=== PATIENT | male | born 1995 | race Caucasian/White ===

== ENCOUNTER → 2019-08-22 | Outpatient (CLI) | payer OTHER, BC ==
[2019-08-22 10:19] LABS: ABSOLUTE EOSINOPHILS # (AUTO) 0.2 10^3/uL (0.0-0.6); ABSOLUTE LYMPHOCYTES (AUTO) 1.6 10^3/uL (0.5-4.7); ABSOLUTE MONOCYTES (AUTO) 0.4 10^3/uL (0.1-1.4); ABSOLUTE NEUT (AUTO) 3.2 10^3/uL (1.7-8.2); BASOPHILS % (AUTO) 0.2 % (0-2); EOSINOPHILS % (AUTO) 2.9 % (0-6); HEMATOCRIT 44.7 % (37.9-51.0); HEMOGLOBIN 15.3 g/dL (13.5-17.0); LYMPHOCYTES % (AUTO) 30.1 % (13-45); MEAN CORPUSCULAR HEMOGLOBIN 28.4 pg (27.0-33.4); MEAN CORPUSCULAR HGB CONC 34.2 g/dL (32.0-36.0); MEAN CORPUSCULAR VOLUME 83 fl (80-97); MONOCYTES % (AUTO) 7.4 % (3-13); PLATELET COUNT 226 10^3/uL (150-450); RED BLOOD COUNT 5.39 10^6/uL (4.35-5.55); RED CELL DISTRIBUTION WIDTH 14.1 % (11.5-14.0); SEGMENTED NEUTROPHILS % (AUTO) 59.4 % (42-78); TOTAL CELLS COUNTED % (AUTO) 100 %; WHITE BLOOD COUNT 5.3 10^3/uL (4.0-10.5)
[2019-08-22 10:43] LABS: ALBUMIN 4.9 g/dL (3.5-5.0); ALKALINE PHOSPHATASE 70 U/L (38-126); ANION GAP 10 (5-19); ASPARTATE AMINO TRANSFERASE 23 U/L (17-59); BILIRUBIN,DIRECT 0.1 mg/dL (0.0-0.4); BILIRUBIN,TOTAL 0.4 mg/dL (0.2-1.3); BLOOD UREA NITROGEN 14 mg/dL (7-20); CALCIUM 9.6 mg/dL (8.4-10.2); CARBON DIOXIDE 28 mmol/L (22-30); CHLORIDE 102 mmol/L (98-107); GLUCOSE 87 mg/dL (75-110); POTASSIUM 4.8 mmol/L (3.6-5.0); TRIGLYCERIDES 184 mg/dL (<150)
[2019-08-22 10:54] LABS: DIRECT LDL 136 mg/dL (<100)
[2019-08-22 10:55] LABS: VLDL CHOLESTEROL 36.8 mg/dL (10-31)
== END ==
LOC: OD 09:27
PROVIDERS: ATTEND Internal Medicine
DX: R53.83 Other fatigue (principal); K21.9 Gastro-esophageal reflux disease without esophagitis; R73.9 Hyperglycemia, unspecified; G47.33 Obstructive sleep apnea (adult) (pediatric); E78.5 Hyperlipidemia, unspecified
CPT/HCPCS: 36415; 80053; 80061; 83036; 84443; 85025

== ENCOUNTER 2019-11-10 09:15 | Day surgery (SDC) | payer BC, OTHER ==
[~2019-11-10 09:15] MED LIST: CLINDAMYCIN 900 MG/D5W RTU 900 MG/50 ML RTUPB IV PRN; DEXAMETHASONE SOD PHOS INJ 10 MG/1 ML VIAL ONE; FAMOTIDINE INJ/PF 20 MG/2 ML SDV IV ONE; FENTANYL CITRATE INJ/PF 100 MCG/2 ML AMPUL ONE; GLYCOPYRROLATE INJ 0.4 MG/2 ML VIAL ONE; LIDOCAINE 2% INJ-PF (100 MG/5 ML) SYRINGE ONE; MIDAZOLAM 2 MG/2 ML INJ ONE; ONDANSETRON HCL INJ/PF 4 MG/2 ML SDV ONE; PROPOFOL INJ 200 MG/20 ML VIAL IV ONE; SUCCINYLCHOLINE CHLORIDE INJ 200 MG/10 ML VIAL ONE
[2019-11-10] MEDS ORDERED: BUPIVACAINE HCL 0.5%/EPI 1:200000 INJ 1.8 ML CARTRIDGE ONE (12:04)
[2019-11-10] MEDS ORDERED: FENTANYL CITRATE INJ/PF 100 MCG/2 ML AMPUL ONE (12:36)
[2019-11-10] MEDS ORDERED: MIDAZOLAM 2 MG/2 ML INJ ONE (12:36)
[2019-11-10] MEDS ORDERED: ACETAMINOPHEN 1,000 MG/100 ML RTUPB IV ONE (12:38)
[2019-11-10] MEDS ORDERED: PROPOFOL INJ 200 MG/20 ML VIAL IV ONE (13:45)
--- NOTE | 2019-11-12 13:30 | Operative Report ---
Operative Report-[facility] Operative Report: DATE OF OPERATION: November 10, 2019 PREOPERATIVE DIAGNOSIS: 1. Acute recurrent tonsillitis 2. Tonsil hypertrophy 3. Chronic tonsillitis 4. Tonsil stones 5. Mild obstructive sleep apnea POSTOPERATIVE DIAGNOSIS: 1. Acute recurrent tonsillitis 2. Tonsil hypertrophy 3. Chronic tonsillitis 4. Tonsil stones 5. Mild obstructive sleep apnea PROCEDURE: 1. Bilateral tonsillectomy patient age rater than 10 Primary Surgeon of Record: Dr. Antonio Edward FINANCIAL SPECIALIST: None Anesthesia Staff: YASMINE Macias ANESTHESIA: General Endotracheal Tube Anesthesia DRAINS: None SPONGE COUNT: Verified Needle Count: N/A SPECIMEN/MATERIALS FORWARD TO THE LAB: 1. Left and Right Tonsillar Tissue ESTIMATED BLOOD LOSS: 10 mL IV FLUIDS: mL COMPLICATIONS: None Findings: 1. The tonsils were 2-3+ in size, were cryptic in nature, and were endophytic in appearance in part due to the significant oral pharyngeal redundancy of tissues. 2. The soft palatal tissues were significantly redundant in nature and the uvula was thickened and elongated appearance. INDICATIONS: This is a 24-year-old white male patient who was seen and evaluated in the [place] [facility] office. The patient had been referred for and the patient and his mother complained of a history of acute recurrent tonsillitis episodes requiring antibiotics each year over the years. The patient is also with history of difficulty with chronic tonsillitis and tonsil stones over the years. The patient is also with mild LESA. The patient was also not interested in a uvulopalatopharyngoplasty or base of tongue reduction. After extensive discussion with the and and his mother with the recommendation and plan to proceed with a bilateral tonsillectomy. The procedures and all of the risks and complications were all discussed in detail with the patient and his mother. They voiced an understanding of the described surgical plan, were in agreement, and consent was obtained. DESCRIPTION OF OPERATIVE PROCEDURE: The patient was taken to the main operating room and was placed on the operating room table in the supine position. Appropriate monitors were placed. Using mask and IV access general anesthesia was induced. The patient was next transorally intubated without difficulty. The table was then rotated 90 and the patient was positioned and prepped for tonsil and adenoid surgery. The lips, teeth, tongue, and gums were inspected and noted to be without defect. The patient had a mouth gag inserted. It was opened and the patient was placed into suspension. There was a soft catheter passed through the nose that was used to suspend the soft palate. Findings are as noted above. At this point Marcaine with epinephrine was administered into the peritonsillar tissues and soft palate region. The plasma J-hook device was used to dissect and remove the tonsils from the tonsillar fossae without difficulty. This was also used to provide adequate hemostasis. Normal saline irrigation was performed and was suctioned. Adequate hemostasis was noted. The soft catheter was released and removed from the patients nose. The patient was next released from suspension and the mouth gag was closed. It was opened again and there was again no bleeding noted. It was then removed from the patient's mouth without difficulty. There was no damage to the lips, teeth, tongue, or gums noted. The patient was then returned to the anesthesia staff and was allowed to emerge from general anesthesia. The patient was extubated in the operating room and was transported to the post anesthesia recovery unit in stable condition. There were no complications.
== END 2019-11-10 14:30 | disposition home or self-care (01) ==
LOC: SC 09:15
PROVIDERS: ATTEND Otolaryngology
DX: J03.91 Acute recurrent tonsillitis, unspecified (principal); J35.01 Chronic tonsillitis; J35.8 Other chronic diseases of tonsils and adenoids; K21.9 Gastro-esophageal reflux disease without esophagitis; J30.9 Allergic rhinitis, unspecified; Z96.22 Myringotomy tube(s) status; Z87.09 Personal history of other diseases of the respiratory system
CPT/HCPCS: 36415; 86003 ×24; 82785; 88304 ×2; 42826; J2250; J3490 ×2; J3010; J2001; J0330; J2405; J2704; S0028; J1100; J0131